=== PATIENT | female | born 1980 | race Asian ===

== ENCOUNTER 2018-03-19 19:04 | Inpatient (IN) | payer BC ==
[2018-03-19] VITALS (24 sets, daily range): BP systolic 77–118; BP diastolic 50–79
[~2018-03-19] VITALS: Ht 157.5 cm; Wt 61.2 kg
[~2018-03-19 19:04] MED LIST: BACTERICIN30 GM TP; MEDROL DOSEPAK4 MG PO; MOTRIN800 MG PO; NAPROSYN500 MG PO; PERCOCET 10/1 TABLET PO; PERCOCET 5/31 TABLET PO; VALIUM5 MG PO; ZOFRAN4 MG PO
[2018-03-19] MEDS ORDERED: PRENATAL TABLE1 EACH PO (19:31)
[2018-03-19 20:38] LABS: BASOPHIL (%) 0.3 % (0-1); EOSINOPHIL (%) 0.9 % (0-5); EOSINOPHIL COUNT 0.1 K/uL (0-0.3); HEMATOCRIT 35.5 % (36.0-46.0); HEMOGLOBIN 12.3 G/DL (11.9-15.5); IMMATURE GRANULOCYTE (%) 0.8 % (0.0-0.7); LYMPHOCYTE (%) 14.2 % (15-42); LYMPHOCYTE COUNT 1.5 K/uL (1.0-2.8); MCH 31.5 PG (29.0-34.0); MCHC 34.6 G/DL (30.0-36.0); MONOCYTE (%) 8.9 % (3-12); NEUTROPHIL (%) 74.9 % (45-76); PLATELET COUNT 210 K/uL (156-360); RBC DIS.WIDTH-CV 12.9 % (11.8-14.6); RBC DIS.WIDTH-SD 41.9 % (39-53); WHITE BLOOD COUNT 10.6 K/uL (4.1-10.2)
[2018-03-19 21:19] LABS: AMPHETAMINE NEGATIVE (500 ng/mL); BARBITURATES NEGATIVE (200 ng/mL); BENZODIAZEPINES NEGATIVE (150 ng/mL); BUPRENORPHINE NEGATIVE (10 ng/mL); COCAINE NEGATIVE (150 ng/mL); METHADONE NEGATIVE (200 ng/mL); METHAMPHETAMINE NEGATIVE (500 ng/mL); OPIATES (MORPHINE) NEGATIVE (100 ng/mL); OXYCODONE NEGATIVE (100 ng/mL); PHENCYCLIDINE NEGATIVE (25 ng/mL); PROPOXYPHENE NEGATIVE (300 ng/mL); THC CANNABINOIDS NEGATIVE (50 ng/mL); TRICYCLIC ANTIDEPRESSANTS NEGATIVE (300 ng/mL)
[2018-03-20] VITALS (19 sets, daily range): BP systolic 76–118; BP diastolic 46–80
[2018-03-20] MEDS ORDERED: IBUPROFEN800 MG PO (05:06)
[2018-03-21 07:05] VITALS: BP 100/57
[2018-03-21 15:40] VITALS: BP 97/58
[2018-03-21 23:06] VITALS: BP 81/45
[2018-03-22 07:25] VITALS: BP 99/56
== END 2018-03-22 11:00 | disposition home or self-care (01) | DRG 775 ==
LOC: LDRP-OP 19:04 → 2WEST 19:05 → LDRP-OP 05-08 06:13
PROVIDERS: Obstetrics & Gynecology
PROC: 3E0R3BZ Introduction of Anesthetic Agent into Spinal Canal, Percutaneous Approach (ICD-10-PCS; principal; 2018-03-19)
PROC: 10907ZC Drainage of Amniotic Fluid, Therapeutic from Products of Conception, Via Natural or Artificial Opening (ICD-10-PCS; principal; 2018-03-19)
PROC: 00HU33Z Insertion of Infusion Device into Spinal Canal, Percutaneous Approach (ICD-10-PCS; principal; 2018-03-19)
PROC: 10E0XZZ Delivery of Products of Conception, External Approach (ICD-10-PCS; 2018-03-20)
DX: O99.824 Streptococcus B carrier state complicating childbirth (principal); Z3A.38 38 weeks gestation of pregnancy; Z37.0 Single live birth
CPT/HCPCS: 85025; C1755; G0378; J2370; J2540; J3010; J7120